=== PATIENT | female | born 1980 | race Two or more races ===

== ENCOUNTER 2016-12-28 13:30 | Emergency (ER) | payer SELFPAY ==
[~2016-12-28] VITALS: Ht 165.1 cm; Wt 69.4 kg
--- NOTE | 2016-12-28 13:30 | NUR ---
BB NURSE FROM DR. CLAYTON'S OFFICE FOR RAPID HEART RATE X TODAY. REPORTS THAT SHE RECENTLY WENT TO ANOTHER ER FOR OTHER COMPLAINTS AND GOT WORSE WITH ALL THE NEW MEDS THAT SHE IS TAKING. NOTED HR- 120-130'S. OTHER VS STABLE. PT AAOX3. SEEN BY PA. SAFETY AND COMFORT MEASURES PROVIDED. WILL MONITOR.
--- NOTE | 2016-12-28 13:45 | NUR ---
IV ACCESS STARTED. BLOOD DRAWN FOR LABS. MEDICATED ORDERED.
[2016-12-28] MEDS ORDERED: IV NS 0.9% 1,000 ML BAG IV ONE ×2 (14:00→17:30)
[2016-12-28] MEDS ORDERED: LORAZEPAM INJ 2 MG/ML VIAL IV ONE (14:00)
[2016-12-28] MEDS ORDERED: LORAZEPAM INJ 2 MG/ML VIAL ONE (14:02)
[2016-12-28 14:07] LABS: BASOPHILS # (AUTO) 0.1 /CMM (0.0-0.2); BASOPHILS % (AUTO) 0.6 % (0.0-2.0); EOSINOPHILS # (AUTO) 0.3 /CMM (0.0-0.7); EOSINOPHILS % (AUTO) 3.2 % (0.0-6.0); HEMATOCRIT 45 % (33-45); HEMOGLOBIN 15.6 g/dL (11.5-14.8); LYMPHOCYTES # (AUTO) 2.6 /CMM (0.8-4.8); LYMPHOCYTES % (AUTO) 24.9 % (20.0-44.0); MEAN CORPUSCULAR HEMOGLOBIN 30 PG (26.0-33.0); MEAN CORPUSCULAR HGB CONC 34 g/dl (31.0-36.0); MEAN CORPUSCULAR VOLUME 87 fL (82-100); MONOCYTES # (AUTO) 0.5 /CMM (0.1-1.30); MONOCYTES % (AUTO) 4.5 % (2.0-12.0); NEUTROPHILS # (AUTO) 7.1 /CMM (1.8-8.9); NEUTROPHILS % (AUTO) 66.8 % (43.0-81.0); PLATELET COUNT (AUTO) 217 /CMM (150-450); RDW COEFFICIENT OF VARIATION 11.9 (11.5-15.0); WHITE BLOOD COUNT (AUTO) 10.6 K/uL (4.3-11.0)
[2016-12-28 14:18] LABS: CALCIUM, SERUM 9.2 mg/dL (8.5-10.1); CARBON DIOXIDE 25 mmol/L (21-32); CHLORIDE 102 mmol/L (98-107); CREATININE 0.6 mg/dL (0.6-1.3); GLUCOSE 103 mg/dL (74-106); POTASSIUM 3.9 mmol/L (3.5-5.1); SODIUM SERUM 136 mmol/L (136-145); UREA NITROGEN, BLOOD 10 mg/dL (7-18)
[2016-12-28 14:21] LABS: INR 0.91 (0.87-1.13); PROTHROMBIN TIME 9.5 SECS (9.5-12.7)
[2016-12-28 14:25] LABS: ALANINE AMINOTRANSFERASE 23 U/L (12-78); ALBUMIN 4.4 g/dL (3.4-5.0); ALKALINE PHOSPHATASE 96 U/L (46-116); ASPARTATE AMINOTRANSFERASE 19 U/L (15-37); BILIRUBIN,TOTAL 0.4 mg/dL (0.2-1.0); TOTAL PROTEIN, SERUM 8.1 g/dL (6.4-8.2)
[2016-12-28 14:40] LABS: TROPONIN I < 0.017 ng/mL (0.00-0.056)
[2016-12-28 19:43] VITALS: BP 118/88
== END 2016-12-28 19:44 | disposition home or self-care (01) ==
LOC: ER 13:33 → EDSEX 13:33 → ER 19:44
DX: R07.89 Other chest pain (principal); R94.6 Abnormal results of thyroid function studies; R00.0 Tachycardia, unspecified
CPT/HCPCS: 36415; 71010-TC; 80048-TC; 80076-TC; 80305; 83690-TC; 84443-TC; 84484-TC; 84703-TC; 85025-TC; 85378-TC; 85730-TC; A4606; J2060; J7030; Z7610